=== PATIENT | male | born 1990 | race Two or more races ===

== ENCOUNTER 2017-01-18 20:20 | Emergency (ER) | payer SELFPAY ==
--- NOTE | ~2017-01-18 | CT71 ---
[facility] A Service of [facility] RADIOLOGY TEXT RESULTS PATIENT: SHARYN LORENZANA LOCATION: [facility] : [birth year] UNIT #: [id number] AGE: [address]: Fadumo Link APRN SEX: M ORDER DR: [id number] [id number] [facility]. [place], [place] [address] [id number] MR#: [id number] Acc #: [id number] NAME: SHARYN LORENZANA : 1990 SEX: M STUDY DATE/TIME: 01/18/2017 20:49 UNIT: CFTX ROOM: STUDY DESCRIPTION: CT Head Wo Contrast Attending Physician: Fadumo Link A.P.R.N. Ordering Physician: Fadumo Link A.P.R.N. Primary Care Physician: No Primary Care Physician MEDICAL IMAGING REPORT This report is preliminary unless electronic signature is present EXAM CT brain without contrast. HISTORY Headache and sinus pain for [address] exam was performed with one or more of the following radiation dose reduction techniques: automatic exposure control, adjustment of mA and/or kV according to patient size, and iterative reconstruction. FINDINGS CT brain without contrast demonstrates no intracranial hemorrhage, mass or edema. No midline shift or ventricular dilatation. No extraaxial fluid collection. Mild mucosal thickening in the partly visualized right maxillary sinus and partly visualized retention cyst in the posterior left maxillary sinus measuring close to 1 cm[address] 1[address] Negative [address] brain. 2. Mild mucosal thickening in the posterior right maxillary sinus and a retention cyst in the posterior left maxillary sinus. Dictated by... Jeremy Alas M.D. THIS IS AN ELECTRONICALLY VERIFIED REPORT Jeremy Alas M.D. at 01/19/2017 11:26 PM DFL/gz TD: 01/19/2017 08:42 JOB #: [id number] [facility] A Service of [facility] RADIOLOGY TEXT RESULTS PATIENT: SHARY[facility]ORENZANA [id number] [birth year] UNIT #: [id number] AGE: [address]: Fadumo Link APRN SEX: M ORDER DR: MEDICAL IMAGING REPORT COPY
== END 2017-01-18 21:38 | disposition home or self-care (01) ==
LOC: CFTX 20:20
DX: G51.0 Bell's palsy (principal); F17.200 Nicotine dependence, unspecified, uncomplicated
CPT/HCPCS: 70450; 99284